=== PATIENT | female | born 1965 | race Caucasian/White ===

== ENCOUNTER 2017-04-02 22:29 | Emergency (ER) | payer BC ==
[2017-04-02 22:52] VITALS: BP 133/92
[2017-04-02 23:52] LABS: CHLORIDE,CL 104 mmol/L (101-111); SODIUM,NA 136 mmol/L (135-145)
[2017-04-03] MEDS ORDERED: Potassium Chloride 10 MEQ Tab.ER PO ONE (00:38)
--- NOTE | 2017-04-03 00:41 | EDM.PDOC ---
ED HISTORY OF PRESENT ILLNESS - General Chief Complaint: Cardiovascular Problem Stated Complaint: CARDIC PROBS; HIGH BP ALL DAY NO RELIEF Time Seen by Provider: 04/02/17 23:22 Source of Information: Reports: Patient History Limitations: Reports: No limitations - History of Present Illness INITIAL COMMENTS - FREE TEXT/NARRATIVE: c/o palpitations, similar yesterday with low potassium. No symptoms at present. Lasted few minutes while resting this evening. Potassium supplement this am. Lab to be rechecked in am. No chest pain or SOB. Timing/Duration: Reports: Minutes: Severity: moderate Location, General: Reports: chest Quality: Reports: Same as previous episode Associated Symptoms (General): Denies: chest pain, cough, loss of appetite, malaise, shortness of breath - Related Data Allergies/ADRs: Allergies Allergy/AdvReac Type Severity Reaction Status Date / Time codeine Allergy Itching Verified 04/02/17 22:52 morphine Allergy Itching Verified 04/02/17 22:52 Home Meds: Home Meds Fish Oil/[place]-3 Fatty Acids [Fish Oil] 1 each PO DAILY 10/06/15 [History] Venlafaxine [Effexor XR] 150 mg PO DAILY 10/06/15 [History] amLODIPine Besylate [Amlodipine Besylate] 5 mg PO DAILY 10/06/15 [History] Metoprolol Succinate [Toprol XL] 1 tab PO DAILY 04/02/17 [History] Past Medical History Cardiovascular History: Reports: Hypertension Psychiatric History: Reports: Depression Social & Family History - Tobacco Use Smoking Status *Q: Never Smoker - Caffeine Use Caffeine Use: Reports: Coffee, Soda - Recreational Drug Use Recreational Drug Use: No - Living Situation & Occupation Living situation: Reports: with family Occupation: employed ED ROS GENERAL - Review of Systems Review Of Systems: See Below Constitutional: Denies: diaphoresis HEENT: Reports: No symptoms Respiratory: Reports: No Symptoms Cardiovascular: Reports: Palpitations GI/Abdominal: Reports: No symptoms Musculoskeletal: Reports: no symptoms Skin: Reports: no symptoms ED EXAM, GENERAL - Physical Exam Exam: See Below Exam Limited By: No limitations General Appearance: alert, anxious Eye Exam: bilateral eye: EOMI Ears: normal external exam Nose: normal inspection Throat/Mouth: Normal inspection Head: atraumatic, normocephalic Neck: normal inspection Respiratory/Chest: no respiratory distress, lungs clear, normal breath sounds Cardiovascular: normal peripheral pulses, regular rate, rhythm GI/Abdominal: normal bowel sounds (Female) Exam: Normal external exam Back Exam: normal inspection Extremities: normal inspection Neurological: alert, oriented, normal cognition Psychiatric: anxious Skin Exam: Warm, Dry, Intact, Normal color Course - Vital Signs Last Recorded V/S: Last Vital Signs Temp 98.0 F 04/02/17 22:51 Pulse 89 04/02/17 22:51 Resp 20 04/02/17 22:51 BP 133/92 H 04/02/17 22:51 Pulse Ox 99 04/02/17 22:51 - Orders/Labs/Meds Orders: Active Orders 24 hr Category Date Time Status EKG Documentation Completion [RC] URGENT Care 04/02/17 23:21 Active Labs: Laboratory Tests 04/02/17 04/02/17 04/02/17 Range/Units 23:26 23:26 23:26 WBC 8.7 (5.0-10.0) 10^3/uL RBC 4.23 (4.2-5.4) 10^6/uL Hgb 12.7 (12.0-16.0) g/dL Hct 37.9 (37.0-47.0) % MCV 89.6 (80-100) fL MCH 30.0 (27.0-34.0) pg MCHC 33.5 (33.0-35.0) g/dL RDW Not Reportable RDW Coeff of Juan Luis Not Reportable Plt Count 247 (150-450) 10^3/uL MPV Not Reportable Neutrophils % (Manual) 56 % Lymphocytes % (Manual) 33 % Monocytes % (Manual) 7 % Eosinophils % (Manual) 4 % Sodium 136 (135-145) mmol/L Potassium 3.0 L (3.6-5.0) mmol/L Chloride 104 (101-111) mmol/L Carbon Dioxide 25.0 (21.0-31.0) mmol/L Anion Gap 10.0 BUN 11 (7-18) mg/dL Creatinine 0.8 (0.6-1.3) mg/dL Est Cr Clr Drug Dosing 66.54 mL/min Estimated GFR (MDRD) > 60 BUN/Creatinine Ratio 13.75 Glucose 109 H (74-105) mg/dL Calcium 9.0 (8.4-10.2) mg/dl Total Bilirubin 0.3 (0.2-1.0) mg/dL AST 18 (10-42) IU/L ALT 18 (10-60) IU/L Alkaline Phosphatase 70 (42-121) IU/L CK-MB (CK-2) 1.90 (0.4-4.7) ng/mL Troponin I < 0.02 (0.00-0.02) ng/ml Total Protein 6.9 (6.7-8.2) g/dl Albumin 3.8 (3.2-5.5) g/dl Globulin 3.1 Albumin/Globulin Ratio 1.23 Amylase 46 (28-100) U/L Lipase 54 H (22-51) U/L Meds: Medications Discontinued Medications Generic Name Dose Route Start Last Admin Trade Name Freq PRN Reason Stop Dose Admin Potassium Chloride 10 meq 04/03/17 00:38 04/03/17 00:46 Klor-Con 10 PO 04/03/17 00:39 10 meq ONETIME ONE Administration - Radiology Interpretation Free Text/Narrative:: CXR negative Departure - Departure Time of Disposition: 00:39 Disposition: Home, Self-Care 01 Condition: good Clinical Impression: Palpitations Instructions: Palpitations Forms: ED Department Discharge Additional Instructions: increase potassium rich foods follow up in clinic for recheck potassium level or saturday follow up urgently if chest pain, shortness of breath or jaw pain - My Orders Last 24 Hours: My Active Orders 04/02/17 23:21 EKG Documentation Completion [RC] URGENT - Assessment/Plan Last 24 Hours: My Active Orders 04/02/17 23:21 EKG Documentation Completion [RC] URGENT
--- NOTE | 2017-04-04 08:26 | EKG ---
04/02/2017- PERSON, OMAR FREY - EKG done on a 51-year-old female, showing sinus rhythm with heart rate of 84 beats per minute, left axis deviation, normal intervals. [facility] /[id number]
== END 2017-04-03 00:50 | disposition home or self-care (01) ==
LOC: DL.ED 22:29
DX: R00.2 Palpitations (principal); I10 Essential (primary) hypertension; F32.9 Major depressive disorder, single episode, unspecified; Z79.899 Other long term (current) drug therapy; Z88.5 Allergy status to narcotic agent
CPT/HCPCS: 36415; 71010; 80053; 82150; 82553; 83690; 84484; 85025; 93005; 99284; A9270

== ENCOUNTER 2018-01-13 17:52 | Emergency (ER) | payer BC ==
[2018-01-13 18:47] VITALS: BP 147/116
[2018-01-13] MEDS ORDERED: Sodium Chloride 0.9% 10 ML Syringe FLUSH PRN (21:15)
[2018-01-13] MEDS ORDERED: Sodium Chloride 0.9% 1,000 ML IV ONE (21:15)
[2018-01-13] MEDS ORDERED: HYDROmorphone 1 MG/ML Syringe IVPUSH ONE (21:15)
[2018-01-13] MEDS ORDERED: Ondansetron 4 MG/2 ML SDV IV ONE (21:15)
[2018-01-13 21:58] LABS: CHLORIDE,CL 103 mmol/L (101-111); SODIUM,NA 136 mmol/L (135-145)
[2018-01-13] MEDS ORDERED: Iopamidol 612 MG/ML 100 ML Bottle IVPUSH ONE (23:37)
[2018-01-14] MEDS ORDERED: Ketorolac 30 MG/ML SDV IVPUSH ONE (00:09)
--- NOTE | 2018-01-14 00:34 | EDM.PDOC ---
ED HPI GENERAL MEDICAL PROBLEM - General Chief Complaint: General Stated Complaint: PAIN RIB AREA Time Seen by Provider: 01/13/18 21:04 Source of Information: Reports: Patient, RN, RN Notes Reviewed History Limitations: Reports: No Limitations - History of Present Illness INITIAL COMMENTS - FREE TEXT/NARRATIVE: Pt presents to the ER with c/o right sided abdominal pain that wraps around to the back. She states the pain began yesterday, became worse through the day. She states she has taken tramadol and ibuprofen last night, but the pain continues to get much worse. She describes the pain as sharp/burning "hot". She rates the pain 8-9/10. She admits to SOB and nausea. She denies fever, vomiting , diarrhea, constipation, chest pains, or urination problems. Onset: Today, Sudden Location: Reports: Abdomen, Back Quality: Reports: Burning, Sharp Severity: Severe Improves with: Reports: None Worsens with: Reports: None Associated Symptoms: Reports: Nausea/Vomiting Treatments GROCERY DEPARTMENT MANAGER: Reports: NSAIDS Mid-Posterior Back Pain Score (Numeric/FACES): 7 - Related Data Allergies Allergy/AdvReac Type Severity Reaction Status Date / Time codeine Allergy Itching Verified 01/13/18 18:50 morphine Allergy Itching Verified 01/13/18 18:50 Home Meds: Home Meds Fish Oil/[place]-3 Fatty Acids [Fish Oil] 1 each PO DAILY 10/06/15 [History] Venlafaxine [Effexor XR] 150 mg PO DAILY 10/06/15 [History] amLODIPine Besylate [Amlodipine Besylate] 5 mg PO DAILY 10/06/15 [History] Metoprolol Succinate [Toprol XL] 1 tab PO DAILY 04/02/17 [History] Past Medical History Cardiovascular History: Reports: Hypertension Psychiatric History: Reports: Depression Social & Family History - Tobacco Use Smoking Status *Q: Never Smoker Second Hand Smoke Exposure: No - Caffeine Use Caffeine Use: Reports: None - Recreational Drug Use Recreational Drug Use: No - Living Situation & Occupation Living situation: Reports: with Family Occupation: Employed ED ROS GENERAL - Review of Systems Review Of Systems: ROS reveals no pertinent complaints other than HPI. ED EXAM, GENERAL - Physical Exam Exam: See Below Exam Limited By: No Limitations General Appearance: Alert, WD/WN, Severe Distress Eye Exam: Bilateral Eye: EOMI, Normal Inspection, PERRL Ears: Normal External Exam, Hearing Grossly Normal Nose: Normal Inspection Throat/Mouth: Normal Inspection, Normal Voice, No Airway Compromise Head: Atraumatic, Normocephalic Neck: Normal Inspection, Supple, Non-Tender, Full Range of Motion Respiratory/Chest: No Respiratory Distress, Lungs Clear, Normal Breath Sounds, No Accessory Muscle Use, Chest Non-Tender Cardiovascular: Normal Peripheral Pulses, Regular Rate, Rhythm, No Edema, No Gallop, No JVD, No Murmur, No Rub Peripheral Pulses: 2+: Radial (L), Radial (R) GI/Abdominal: Normal Bowel Sounds, Soft, No Organomegaly, No Distention, No Abnormal Bruit, No Mass, Tender (RUQ, RLQ) (Female) Exam: Deferred Rectal (Female) Exam: Deferred Back Exam: Normal Inspection, CVA Tenderness (R), Decreased Range of Motion, Muscle Spasm Extremities: Normal Inspection, Normal Range of Motion, Non-Tender, No Pedal Edema, Normal Capillary Refill Neurological: Alert, Oriented, CN II-XII Intact, Normal Cognition, Normal Gait, Normal Reflexes, No Motor/Sensory Deficits Psychiatric: Normal Affect, Normal Mood Skin Exam: Warm, Dry, Intact, Normal Color, No Rash Lymphatic: No Adenopathy Course - Vital Signs Last Recorded V/S: Last Vital Signs Temp 97.8 F 01/13/18 18:36 Pulse 64 01/13/18 18:36 Resp 20 01/13/18 18:36 BP 147/116 H 01/13/18 18:36 Pulse Ox 97 01/13/18 18:36 - Orders/Labs/Meds Orders: Active Orders 24 hr Category Date Time Status Peripheral IV Care [RC] . DIRECTED Care 01/13/18 21:15 Active Peripheral IV Insertion Adult [OM.PC] Stat Oth 01/13/18 21:15 Ordered Labs: Laboratory Tests 01/13/18 01/13/18 01/13/18 Range/Units 21:35 21:35 21:35 WBC 8.5 (5.0-10.0) 10^3/uL RBC 4.56 (4.2-5.4) 10^6/uL Hgb 13.4 (12.0-16.0) g/dL Hct 40.4 (37.0-47.0) % MCV 88.6 (80-100) fL MCH 29.4 (27.0-34.0) pg MCHC 33.2 (33.0-35.0) g/dL Plt Count 243 (150-450) 10^3/uL Neut % (Auto) 50.3 (42.2-75.2) % Lymph % (Auto) 35.2 (20.5-50.1) % [place] % (Auto) 8.8 H (2-8) % Eos % (Auto) 4.6 H (1.0-3.0) % Baso % (Auto) 1.1 H (0.0-1.0) % Sodium 136 (135-145) mmol/L Potassium 4.0 (3.6-5.0) mmol/L Chloride 103 (101-111) mmol/L Carbon Dioxide 27.0 (21.0-31.0) mmol/L Anion Gap 10.0 BUN 8 (7-18) mg/dL Creatinine 0.8 (0.6-1.3) mg/dL Est Cr Clr Drug Dosing 65.80 mL/min Estimated GFR (MDRD) > 60 BUN/Creatinine Ratio 10.00 Glucose 104 (74-105) mg/dL Calcium 8.7 (8.4-10.2) mg/dl Total Bilirubin 0.5 (0.2-1.0) mg/dL AST 19 (10-42) IU/L ALT 16 (10-60) IU/L Alkaline Phosphatase 76 (42-121) IU/L Troponin I < 0.02 (0.00-0.02) ng/ml Total Protein 7.5 (6.7-8.2) g/dl Albumin 4.0 (3.2-5.5) g/dl Globulin 3.5 Albumin/Globulin Ratio 1.14 Amylase 48 (28-100) U/L Lipase 32 (22-51) U/L Urine Color (YELLOW) Urine Appearance (CLEAR) Urine pH (5.0-9.0) Ur Specific Blanket (1.005-1.030) Urine Protein (NEGATIVE) Urine Glucose (UA) (NEGATIVE) Urine Ketones (NEGATIVE) Urine Occult Blood (NEGATIVE) Urine Nitrite (NEGATIVE) Urine Bilirubin (NEGATIVE) Urine Urobilinogen (0.2-1.0) mg/dL Ur Leukocyte Esterase (NEGATIVE) Urine RBC /HPF Urine WBC (0-5/HPF) /HPF Ur Epithelial Cells /HPF Amorphous Sediment (0/HPF) /HPF Urine Bacteria (0-FEW/HPF) /HPF Urine Mucus /LPF 01/13/18 Range/Units 22:37 WBC (5.0-10.0) 10^3/uL RBC (4.2-5.4) 10^6/uL Hgb (12.0-16.0) g/dL Hct (37.0-47.0) % MCV (80-100) fL MCH (27.0-34.0) pg MCHC (33.0-35.0) g/dL Plt Count (150-450) 10^3/uL Neut % (Auto) (42.2-75.2) % Lymph % (Auto) (20.5-50.1) % [place] % (Auto) (2-8) % Eos % (Auto) (1.0-3.0) % Baso % (Auto) (0.0-1.0) % Sodium (135-145) mmol/L Potassium (3.6-5.0) mmol/L Chloride (101-111) mmol/L Carbon Dioxide (21.0-31.0) mmol/L Anion Gap BUN (7-18) mg/dL Creatinine (0.6-1.3) mg/dL Est Cr Clr Drug Dosing mL/min Estimated GFR (MDRD) BUN/Creatinine Ratio Glucose (74-105) mg/dL Calcium (8.4-10.2) mg/dl Total Bilirubin (0.2-1.0) mg/dL AST (10-42) IU/L ALT (10-60) IU/L Alkaline Phosphatase (42-121) IU/L Troponin I (0.00-0.02) ng/ml Total Protein (6.7-8.2) g/dl Albumin (3.2-5.5) g/dl Globulin Albumin/Globulin Ratio Amylase (28-100) U/L Lipase (22-51) U/L Urine Color Yellow (YELLOW) Urine Appearance Cloudy (CLEAR) Urine pH 6.5 (5.0-9.0) Ur Specific Blanket 1.010 (1.005-1.030) Urine Protein Negative (NEGATIVE) Urine Glucose (UA) Negative (NEGATIVE) Urine Ketones Negative (NEGATIVE) Urine Occult Blood Negative (NEGATIVE) Urine Nitrite Negative (NEGATIVE) Urine Bilirubin Negative (NEGATIVE) Urine Urobilinogen 0.2 (0.2-1.0) mg/dL Ur Leukocyte Esterase Negative (NEGATIVE) Urine RBC 0-5 /HPF Urine WBC 0-5 (0-5/HPF) /HPF Ur Epithelial Cells Moderate H /HPF Amorphous Sediment Rare (0/HPF) /HPF Urine Bacteria Few (0-FEW/HPF) /HPF Urine Mucus Rare /LPF Meds: Medications Discontinued Medications Generic Name Dose Route Start Last Admin Trade Name Freq PRN Reason Stop Dose Admin Hydromorphone HCl 0.5 mg 01/13/18 21:15 01/13/18 21:30 Dilaudid IVPUSH 01/13/18 21:16 0.5 mg ONETIME ONE Administration Sodium Chloride 1,000 mls @ 999 mls/hr 01/13/18 21:15 01/13/18 21:31 Normal Saline IV 01/13/18 22:15 999 mls/hr .BOLUS ONE Administration Iopamidol 100 ml 01/13/18 23:37 01/13/18 23:38 Isovue-300 (61%) IVPUSH 01/13/18 23:38 100 ml ONETIME ONE Administration Ketorolac Tromethamine 30 mg 01/14/18 00:09 01/14/18 00:16 Toradol IVPUSH 01/14/18 00:10 30 mg ONETIME ONE Administration Ondansetron HCl 4 mg 01/13/18 21:15 01/13/18 21:33 Zofran IV 01/13/18 21:16 4 mg ONETIME ONE Administration Orphenadrine Citrate 60 mg 01/14/18 00:15 01/14/18 00:16 Norflex IM 60 mg Q12H NICOLE Administration Sodium Chloride 10 ml 01/13/18 21:15 01/13/18 21:53 Saline Flush FLUSH 10 ml ASDIRECTED PRN Administration Keep Vein Open - Radiology Interpretation Free Text/Narrative:: Chest/Abdomen/Pelvis CT with contrast: Chest: No acute findings Abdomen/Pelvis: Grade 3 spondylolisthesis of L5 over S1 secondary to bilateral pars defects Mild dilation of the small bowel but no evidence for bowel obstruction. Nonspecific mesenteric lymphadenopathy noted in RLQ Sigmoid colon diverticulosis See rad report Departure - Departure Time of Disposition: 00:32 Disposition: Home, Self-Care 01 Condition: Fair Clinical Impression: Abdominal pain Qualifiers: Abdominal location: generalized Qualified Code(s): R10.84 - Generalized abdominal pain Back pain Qualifiers: Back pain location: back pain in unspecified location Chronicity: acute Back pain laterality: left Qualified Code(s): M54.9 - Dorsalgia, unspecified - Discharge Information Instructions: Abdominal Pain, Adult, [id number], Back Pain, Adult, Easy-to- Read Referrals: Cornelia Zepeda CLINICAL ADMISSIONS MANAGER [Primary Care Provider] - Forms: ED Department Discharge Additional Instructions: RX: Diclofenac and Norflex Follow up with your primary care facility - My Orders Last 24 Hours: My Active Orders 01/13/18 21:15 Peripheral IV Care [RC] . DIRECTED Peripheral IV Insertion Adult [OM.PC] Stat - Assessment/Plan Last 24 Hours: My Active Orders 01/13/18 21:15 Peripheral IV Care [RC] . DIRECTED Peripheral IV Insertion Adult [OM.PC] Stat
== END 2018-01-14 00:44 | disposition home or self-care (01) ==
LOC: DL.ED 17:52
DX: R10.84 Generalized abdominal pain (principal); M54.6 Pain in thoracic spine; M43.16 Spondylolisthesis, lumbar region; K57.30 Diverticulosis of large intestine without perforation or abscess without bleeding; I10 Essential (primary) hypertension; F32.9 Major depressive disorder, single episode, unspecified; Z79.899 Other long term (current) drug therapy; Z88.5 Allergy status to narcotic agent
CPT/HCPCS: 36415; 71260; 74177; 80053; 81001; 82150; 83690; 84484; 85025; 96361; 96372; 96374; 96375; 99283; J1170; J1885; J2360; J2405; J7030; J7050; Q9967

== ENCOUNTER → 2020-08-08 15:40 | Emergency (ER) | payer BC | LOC: DL.ED 15:40 | DX: Z53.21 Procedure and treatment not carried out due to patient leaving prior to being seen by health care provider (principal) ==

== ENCOUNTER 2021-12-03 10:08 | Emergency (ER) | payer BC | END 2021-12-03 10:17 | disposition left against medical advice (07) | LOC: DL.ED 10:08 | DX: Z53.21 Procedure and treatment not carried out due to patient leaving prior to being seen by health care provider (principal) ==

== ENCOUNTER 2023-07-10 18:57 | Emergency (ER) | payer BC ==
[2023-07-10] MEDS ORDERED: Bacitracin Oint 1 GM U/D Packet TOP ONE (19:19)
[2023-07-10] MEDS ORDERED: Lidocaine 2% with EPINEPHrine 1:200,000 20 ML SDV INJECT ONE (19:19)
[2023-07-10] MEDS ORDERED: Diphtheria,Pertussis(Acell),Tetanus Vaccine 0.5 ML Syringe IM ONE (19:19)
[2023-07-10 19:21] VITALS: BP 162/104; PULSE 69
== END 2023-07-10 20:31 | disposition home or self-care (01) ==
LOC: DL.ED 18:57
DX: S61.211A Laceration without foreign body of left index finger without damage to nail, initial encounter (principal); I10 Essential (primary) hypertension; E66.9 Obesity, unspecified; Z68.39 Body mass index [BMI] 39.0-39.9, adult; Z79.899 Other long term (current) drug therapy; Z88.5 Allergy status to narcotic agent; W26.0XXA Contact with knife, initial encounter
CPT/HCPCS: 12002; 90471; 90715; 99282; 99282-25; A9270-GY; J3490